=== PATIENT | female | born 1990 | race Caucasian/White ===

== ENCOUNTER 2017-04-13 11:04 | Emergency (ER) | payer MEDICAID ==
[~2017-04-13] VITALS: Ht 152.4 cm; Wt 55.0 kg
[~2017-04-13 11:04] MED LIST: PREN0.01 PO
[2017-04-13 11:06] VITALS: BP 148/68; PULSE 113; RESP 16; TEMP 98.5; O2SAT 99
[2017-04-13] MEDS ORDERED: AMOX500C PO (11:25)
--- NOTE | 2017-04-13 11:25 | PD ---
HPI Chief Complaint: ENT Complaint Time Seen by Provider: 11:21 Travel History International Travel<30 days: No Contact w/Intl Traveler<30days: No Traveled to known affect area: No History of Present Illness HPI 26-year-old female, proximally 16 weeks , presents to the emergency department with complaint of left ear pain since this morning. She's had nasal congestion since about Friday or . Denies fevers, headache, cough, and sore throat, vomiting. Denies vaginal discharge, leaking, bleeding, abdominal pain or cramping. Has not taken any medication to try nature with 2 L symptoms. Symptoms are mild in severity. No known aggravating or relieving factors. 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 No primary care provider. No known allergies. Denies significant past medical history. Has no medical complaints. No other modifying factors or associated signs and symptoms. PFSH Past Medical History ADHD: No Asthma: Yes Cancer: No Diabetes: No Diminished Hearing: No Headaches: No Psychiatric: No Migraines: Yes Seizures: No Thyroid Disease: No Ulcer: No ?: LMP: 12/27/16 : 2 Para: 1 Past Surgical History Appendectomy: No Cholecystectomy: No Other Surgery: No Social History Alcohol Use: No Tobacco Use: No Substance Use: No Allergies-Medications (Allergen,Severity, Reaction): Coded Allergies: No Known Allergies (Verified , 05/22/14) Reported Meds & Prescriptions Reported Meds & Active Scripts Active Amoxicillin 500 Mg Cap 500 Mg PO BID 10 Days Reported Vit ( Plus) (Prenat Multivit/[place]/Iron/Folic Ac) 27 Mg Iron-1 Mg Tab 1 Tab PO DAILY Review of Systems Except as stated in HPI: all other systems reviewed are Neg Physical Exam Narrative GENERAL: Well-nourished, well-developed female patient, in no acute distress; afebrile, nontoxic-appearing SKIN: Warm and dry. No rash. HEAD: Atraumatic. Normocephalic. EYES: Pupils equal and round. No scleral icterus. No injection or drainage. EARS: Bilateral pinnae and external canals appear within normal limits. Left tympanic membrane with erythema, loss of landmarks, and with dullness; without perforation. ENT: Mucosa pink and moist. Oral Pharynx without erythema; without edema or exudates. No uvular edema. No uvular, palatal, or tonsillar deviation. Airway patent. NECK: Trachea midline. No lymphadenopathy. CARDIOVASCULAR: Regular rate and rhythm. No murmur appreciated. RESPIRATORY: No accessory muscle use. Clear to auscultation. Breath sounds equal bilaterally. GASTROINTESTINAL: Rounded. . MUSCULOSKELETAL: No obvious deformities. No clubbing. No cyanosis. No edema. NEUROLOGICAL: Awake and alert. Oriented 3. No obvious cranial nerve deficits. Motor grossly within normal limits. Normal speech. Moves all extremities. 5/5 strength to all extremities. PSYCHIATRIC: Appropriate mood and affect; insight and judgment normal. Data Data Last Documented VS Vital Signs Date Time Temp Pulse Resp B/P (MAP) Pulse Ox O2 Delivery O2 Flow Rate FiO2 04/13/17 11:06 98.5 113 16 148/68 (94) 99 Room Air Orders Orders Acetaminophen (Tylenol) (04/13/17 11:30) Ed Discharge Order (04/13/17 11:26) [facility] Medical Decision Making Medical Screen Exam Complete: Yes Emergency Medical Condition: Yes Medical Record Reviewed: Yes Differential Diagnosis Otitis media, otitis externa, foreign body, cerumen impaction Narrative Course 26-year-old female, approximately 16 weeks , physical exam consistent with left otitis media. Patient is afebrile and nontoxic-appearing. Denies abdominal pain, cramping, vaginal discharge, vaginal bleeding, vaginal leaking. Amoxicillin prescribed for home. Tylenol administered in the ER. Instructed patient to take Tylenol as directed and as needed for pain. Instructed patient to follow up with timber deadener. Instructed patient to follow up with primary care provider. Patient verbalizes understanding and agreement with treatment plan. Patient is medically cleared and stable for discharge. Discussed reasons to return to the emergency department. Patient agrees with treatment plan. The patients vital signs are stable and the patient is stable for outpatient follow-up and treatment. Patient discharged home, stable and in no acute distress. Diagnosis Primary Impression: Left otitis media Qualified Codes: H66.92 - Otitis media, unspecified, left ear Referrals: [facility] Primary Care Physician Patient Instructions: General Instructions, Otitis Externa (ED) Additional Instructions: Take antibiotics as prescribed and complete full course Ibuprofen or Tylenol as directed and as needed to reduce pain and fever [id number] antihistamines or decongestants as directed and as needed for symptom management Avoid getting water in the ears Do not put anything in the ears; including Q-tips Follow-up with primary care provider and/or timber deadener Return to the emergency department immediately with worsening of symptoms Med/Other Pt SpecificInfo: Prescription(s) given Scripts Amoxicillin (Amoxicillin) 500 Mg Cap 500 MG PO BID for Infection for 10 Days, #20 CAP 0 Refills Prov: Babita Belcher 04/13/17 Disposition: 01 DISCHARGE HOME Condition: Stable Babita Belcher Apr 13, 2017 11:25
[2017-04-13] MEDS ORDERED: ACETAMINOPHEN 325 MG TAB PO ONE (11:30)
== END 2017-04-13 11:46 | disposition home or self-care (01) ==
LOC: NEPD 11:04
DX: O26.892 Other specified pregnancy related conditions, second trimester (principal); H66.92 Otitis media, unspecified, left ear; J45.909 Unspecified asthma, uncomplicated; Z3A.16 16 weeks gestation of pregnancy; Z34.92 Encounter for supervision of normal pregnancy, unspecified, second trimester
CPT/HCPCS: 99283